=== PATIENT | female | born 1980 | race Caucasian/White ===

== ENCOUNTER 2018-01-25 05:40 | Inpatient (IN) | payer OTHER ==
[2018-01-25] MEDS ORDERED: LIDOCAINE 1% (MPF) 30 ML INJ INJ (06:30)
[2018-01-25] MEDS: LACTATED RINGER'S 1,000 ML IV* ×3 (06:30→23:14)
[2018-01-25] MEDS ORDERED: OXYTOCIN 30 UNITS/LR 500 ML IV (06:30)
[2018-01-25] MEDS ORDERED: CARBOPROST 250 MCG INJ IM (06:30)
[2018-01-25] MEDS ORDERED: BUTORPHANOL 2 MG INJ IV (06:30)
[2018-01-25] MEDS ORDERED: MISOPROSTOL 200 MCG TAB PR (06:30)
[2018-01-25] MEDS ORDERED: IBUPROFEN 600 MG TAB PO (06:30)
[2018-01-25] MEDS ORDERED: METHYLERGONOVINE 0.2 MG INJ IM (06:30)
[2018-01-25 06:50] LABS: ADD MAN DIFF? NO
[2018-01-25 06:56] LABS: BASOPHILS % 0.2 % (0.0-2.0); EOSINOPHILS # 0.1 10^3/ul (0.0-0.5); EOSINOPHILS % 1.1 % (0.0-7.0); HEMATOCRIT 35.4 % (37.0-47.0); HEMOGLOBIN 12.2 g/dl (12.0-16.0); LYMPHOCYTES # 2.1 10^3/ul (0.8-2.9); LYMPHOCYTES % 23.2 % (15.0-51.0); MEAN CORPUSCULAR HEMOGLOBIN 34.1 pg (29.0-33.0); MEAN CORPUSCULAR HGB CONC 34.5 g/dl (32.0-37.0); MEAN CORPUSCULAR VOLUME 98.9 fl (82.0-101.0); MEAN PLATELET VOLUME 11.3 fl (7.4-10.4); MONOCYTE # 0.8 10^3/ul (0.3-0.9); MONOCYTES % 8.4 % (0.0-11.0); NEUTROPHIL # 6.1 10^3/ul (1.6-7.5); NEUTROPHILS % 66.3 % (39.0-77.0); PLATELET COUNT 198 10^3/UL (140-415); RED BLOOD COUNT 3.58 10^6/ul (4.20-5.40); RED CELL DISTRIBUTION WIDTH 13.5 % (11.5-14.5)
[2018-01-25 06:56] LABS: WHITE BLOOD COUNT 9.2 10^3/ul (4.8-10.8)
[2018-01-25 07:20] LABS: INR 0.89; PROTIME 12.1 Sec (11.9-14.9); PT RATIO 0.9
[2018-01-25 07:21] LABS: PARTIAL THROMBOPLASTIN TIME 27.7 Sec (23.0-35.0)
[2018-01-25 07:47] LABS: HEPATITIS B SURFACE ANTIGEN NEGATIVE (NEGATIVE)
[2018-01-25 17:05] LABS: RAPID PLASMA REAGIN NONREACTIVE (NR)
[2018-01-25] MEDS: DEXTROSE 5%-LR 1,000 ML IV (20:05)
[2018-01-25] MEDS: OXYTOCIN 30 UNITS/LR 500 ML IV (20:58)
[2018-01-25] MEDS: LACTATED RINGER'S 1,000 ML IV (22:07)
[2018-01-25] MEDS ORDERED: FENTAnyl 2MCG/ML-ROPIV 0.2% 100 ML (23:08)
[2018-01-25] MEDS ORDERED: NALOXONE (0.4 MG/ML) INJ IV (23:30)
[2018-01-25] MEDS: FENTAnyl 2MCG/ML-ROPIV 0.2% 100 ML BAG EPI (23:56)
[2018-01-26] MEDS ORDERED: EPHEDrine SULFATE 50 MG/5 ML SYG (00:23)
[2018-01-26] MEDS: EPHEDrine SULFATE 50 MG/5 ML SYG IV (00:26)
[2018-01-26] MEDS: LACTATED RINGER'S 1,000 ML IV* ×4 (00:31→22:04)
[2018-01-26] MEDS: DEXTROSE 5%-LR 1,000 ML IV (03:44)
[2018-01-26] MEDS: OXYTOCIN 30 UNITS/LR 500 ML IV ×3 (04:34→08:30)
[2018-01-26] MEDS ORDERED: HYDROCODONE/APAP (5/325) TAB PO (06:30)
[2018-01-26] MEDS ORDERED: LANOLIN 7 GM TUBE TOP (06:30)
[2018-01-26] MEDS ORDERED: METHYLERGONOVINE 0.2 MG INJ IM (06:30)
[2018-01-26] MEDS ORDERED: DIBUCAINE 1% 30 GM OINT PR (06:30)
[2018-01-26] MEDS ORDERED: ACETAMINOPHEN 325 MG TAB PO (06:30)
[2018-01-26] MEDS ORDERED: CARBOPROST 250 MCG INJ IM (06:30)
[2018-01-26] MEDS ORDERED: MISOPROSTOL 200 MCG TAB PR (06:30)
[2018-01-26] MEDS: WITCH HAZEL/GLYCERIN PAD PR (06:39)
[2018-01-26] MEDS: IBUPROFEN 600 MG TAB PO ×3 (06:39→18:03)
[2018-01-26] MEDS: BENZOCAINE 20% 56 ML SPRAY TOP (06:39)
[2018-01-26] MEDS: SENNA/DOCUSATE NA (8.6MG/50MG) TAB PO ×2 (10:57→22:03)
[2018-01-27] MEDS: IBUPROFEN 600 MG TAB PO ×4 (02:09→17:59)
[2018-01-27] MEDS ORDERED: IBUPROFEN 600 MG TAB PO (06:00)
[2018-01-27] MEDS: LACTATED RINGER'S 1,000 ML IV* ×2 (06:17→14:17)
[2018-01-27 08:26] LABS: ADD MAN DIFF? NO
[2018-01-27 08:29] LABS: BASOPHILS % 0.2 % (0.0-2.0); EOSINOPHILS # 0.2 10^3/ul (0.0-0.5); EOSINOPHILS % 1.5 % (0.0-7.0); HEMATOCRIT 27.1 % (37.0-47.0); HEMOGLOBIN 9.3 g/dl (12.0-16.0); LYMPHOCYTES # 2.4 10^3/ul (0.8-2.9); LYMPHOCYTES % 22.4 % (15.0-51.0); MEAN CORPUSCULAR HEMOGLOBIN 34.4 pg (29.0-33.0); MEAN CORPUSCULAR HGB CONC 34.3 g/dl (32.0-37.0); MEAN CORPUSCULAR VOLUME 100.4 fl (82.0-101.0); MEAN PLATELET VOLUME 10.7 fl (7.4-10.4); MONOCYTE # 0.9 10^3/ul (0.3-0.9); MONOCYTES % 8.3 % (0.0-11.0); NEUTROPHILS % 66.9 % (39.0-77.0); PLATELET COUNT 174 10^3/UL (140-415); RED CELL DISTRIBUTION WIDTH 13.6 % (11.5-14.5)
[2018-01-27 08:29] LABS: WHITE BLOOD COUNT 10.5 10^3/ul (4.8-10.8)
[2018-01-27] MEDS: SENNA/DOCUSATE NA (8.6MG/50MG) TAB PO ×2 (12:05→21:57)
[2018-01-28] MEDS: IBUPROFEN 600 MG TAB PO ×3 (00:44→12:14)
[2018-01-28] MEDS: SENNA/DOCUSATE NA (8.6MG/50MG) TAB PO (09:00)
[2018-01-28] MEDS: DIPHTH/TET/ACEL PERTUSS (ADULT) 0.5 ML VIAL IM* (09:00)
== END 2018-01-28 14:15 | disposition home or self-care (01) | DRG 807 ==
LOC: L-D 05:40 → PP1 01-26 06:00
PROVIDERS: Obstetrics & Gynecology
PROC: 10E0XZZ Delivery of Products of Conception, External Approach (ICD-10-PCS; principal; 2018-01-26)
PROC: 0HQ9XZZ Repair Perineum Skin, External Approach (ICD-10-PCS; 2018-01-26)
DX: O77.0 Labor and delivery complicated by meconium in amniotic fluid (principal); Z37.0 Single live birth; O70.0 First degree perineal laceration during delivery; O69.81X0 Labor and delivery complicated by cord around neck, without compression, not applicable or unspecified; Z3A.40 40 weeks gestation of pregnancy
CPT/HCPCS: 62319; 76815; 85025; 85610; 85730; 86592; 86850; 86900; 86901; 87340; 88307; 90715; 99464